=== PATIENT | female | born 1995 ===

== ENCOUNTER → 2018-07-28 | Outpatient (REF) | payer OTHER | LOC: ZZSTITCHES 12:14 | PROVIDERS: ATTEND Physician Assistant | DX: Z02.89 Encounter for other administrative examinations (principal) | CPT/HCPCS: 87177 ==

== ENCOUNTER → 2018-07-28 | Outpatient (REF) | payer OTHER ==
[2018-07-28 11:58] LABS: PLATELET COUNT, AUTOMATED 314 K/uL (150-450)
== END ==
LOC: ZZSENDIN 11:22
PROVIDERS: ATTEND Physician Assistant
DX: Z02.89 Encounter for other administrative examinations (principal)
CPT/HCPCS: 85025; 86703; 87491; 87591